=== PATIENT | female | born 1925 | race Caucasian/White ===

== ENCOUNTER → 2016-10-13 | Outpatient (CLI) | payer MEDICARE ==
--- NOTE | 2016-10-13 17:53 | Diagnostic Imaging Report ---
EXAMINATION: PET-CT TECHNIQUE: Serum glucose level at the time of the study is: 98 mg/dL. 12.3 mCi of FDG was administered intravenously followed by obtaining PET images with corresponding noncontrast CT scan images. The CT scan was performed for anatomic correlation and attenuation correction and was not performed according to the diagnostic protocol of the areas covered. The scan was performed from the head to mid thighs. INDICATION: Initial staging of a pancreatic cancer. FINDINGS: There is symmetric uptake in the brain. No hypermetabolic mass is seen in the neck. No hypermetabolic mass is seen in the chest. There is mild increased FDG uptake seen along the a CBD stent, uncertain if this is related to neoplastic etiology or inflammation from the stent placement itself. There are areas of increased FDG uptake seen in the colon. There is a significant dilatation of the pancreatic duct in the pancreatic tail, body and the pancreatic neck with fullness in the pancreatic head. No discrete mass however is seen. 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 No hypermetabolic liver metastasis or discrete hypermetabolic lymph nodes are from seen. IMPRESSION: 1. There is diffuse FDG uptake in the colon with surrounding inflammatory changes in the fat which may relate to inflammatory or infectious colitis. Correlate clinically. 2. There is a CBD stent with minimal focus of nonspecific increased FDG uptake at the level of the stent in the upper portion of the pancreatic head area. This could be related to the stent placement, inflammatory change or questionable neoplastic related activity. 3. Significant dilatation of the pancreatic duct in the pancreatic neck, body and tail with nonspecific fullness seen on the pancreatic head region without definitive hypermetabolic mass. Correlation with the pancreatic mass protocol CT scan and/or endoscopic ultrasound findings suggested. Dictated by: Dictated on workstation # [id number]
== END ==
LOC: RAD 09:27
PROVIDERS: ATTEND Internal Medicine Hematology & Oncology
DX: Z01.89 Encounter for other specified special examinations (principal); C25.9 Malignant neoplasm of pancreas, unspecified